=== PATIENT | female | born 1990 | race Caucasian/White ===

== ENCOUNTER 2016-05-02 16:43 | Emergency (ER) | payer SELFPAY ==
[~2016-05-02] VITALS: Wt 65.0 kg
[~2016-05-02 16:43] MED LIST: CEPH-443 PO; CIPR500T4 PO; PNV11TAB PO
[2016-05-02 19:35] LABS: URINE BLOOD (Dip) POC Trace-lysed (NEGATIVE)
[2016-05-02 19:40] LABS: BASOPHILS % 0.3 % (0.0-2.0); EOSINOPHILS # 0.1 10^3/ul (0.0-0.5); EOSINOPHILS % 0.9 % (0.0-7.0); HEMATOCRIT 35.9 % (37.0-47.0); HEMOGLOBIN 12.4 g/dl (12.0-16.0); LYMPHOCYTES # 3.4 10^3/ul (0.8-2.9); MEAN CORPUSCULAR HEMOGLOBIN 30.8 pg (29.0-33.0); MEAN CORPUSCULAR HGB CONC 34.4 g/dl (32.0-37.0); MEAN CORPUSCULAR VOLUME 89.4 fl (82.0-101.0); MONOCYTE # 0.7 10^3/ul (0.3-0.9); MONOCYTES % 5.9 % (0.0-11.0); NEUTROPHIL # 7.4 10^3/ul (1.6-7.5); NEUTROPHILS % 63.9 % (39.0-77.0); PLATELET COUNT 308 10^3/UL (140-440); RED BLOOD COUNT 4.02 10^6/ul (4.20-5.40); RED CELL DISTRIBUTION WIDTH 12.9 % (11.5-14.5); UNCORRECTED WBC 11.6 10^3/ul (4.8-10.8); WHITE BLOOD COUNT 11.6 10^3/ul (4.8-10.8)
[2016-05-02 19:43] LABS: CONDITION 1
--- NOTE | 2016-05-02 19:46 | RADRPT ---
PROCEDURE: Real Time Sonogram. 05/02/2016 06:57 p.m. CLINICAL INDICATION: Vaginal bleeding. TECHNIQUE: This procedure was performed on a high-resolution real time ultrasound Unit using a end ovaginal probe. COMPARISON: No. FINDINGS: Presentation: Cephalic. Cervical Length: Not measured.Placental Location: Frontal.Placental Previa: No. Body limb and cardiac motion: Yes.Heart rate: 137 beats per minute. The skull, ventricles and stomach are unremarkable. Other anatomy was not evaluated in d etail. sex: Indeterminate. Indeterminate. Amniotic fluid volume:4 cm Measured data: BPD:2.8 cm15 weeks area days plus or minus 1 week 1 day HC:10.8 cm15 weeks 1 day plus or minus 1 week 1 day AC:A 0.5 [id number] is plus or minus 1 week 5 days. FC:1.5 cm14 weeks 2 days plus or minus 1 week 3 days. AUA:14 weeks 6 days plus or minus 1 week 0 days. LUCI (AUA):10/25/2016. Serial scan estimated menstrual age: Not calculated. weight: 102 g Endovaginal imaging utilized: Yes. Additional findings: No. IMPRESSION: See above RPTAT:AAJJ Physician Julien Date Time Electronically viewed and signed by Brian Whitmore Physician on 05/02/2016 19:45 /
--- NOTE | 2016-05-02 20:01 | ERD ---
ER Documentation Chief Complaint Date/Time DATE: 05/02/16 TIME: 20:00 Chief Complaint SPOTTING AND ABD PAIN 14 WKS ONSET THIS AM. NO DYSURIA HPI This 25-year-old female presents with vaginal spotting and some very slight lower abdominal pain starting today. She denies any fevers, vomiting, urinary complaints. She is approximately 14 weeks by dates. She is a G2 para 1. ROS All systems reviewed and are negative except as per history of present illness. Medications Home Meds Active Scripts Ciprofloxacin Hcl* (Ciprofloxacin Hcl*) 500 Mg Tablet, 500 MG PO BID for 3 Days , TAB Prov:DONNIE ACEVEDO PA-C 05/25/15 Cephalexin* (Keflex*) 500 Mg Capsule, 500 MG PO QID for 5 Days, CAP Prov:RAYMUNDO SANDY 04/26/15 Reported Medications [id number] ( 19) 1 Each Tablet, 1 EACH PO DAILY 02/14/13 Allergies Allergies: Coded Allergies: No Known Drug Allergy (Verified Allergy, Unknown, 05/11/15) PMhx/Soc Medical and Surgical Hx: pt denies Medical Hx History of Surgery: Yes (gb ) Anesthesia Reaction: No Hx Neurological Disorder: No Hx Respiratory Disorders: No Hx Cardiac Disorders: No Hx Psychiatric Problems: No Hx Miscellaneous Medical Probl: No Hx Alcohol Use: No Hx Substance Use: No Hx Tobacco Use: No Physical Exam Vitals Vital Signs Date Time Temp Pulse Resp B/P Pulse Ox O2 Delivery O2 Flow Rate FiO2 05/02/16 16:54 98.5 68 20 120/67 100 Physical Exam Const: [] Alert, [id number] per Head: Atraumatic Eyes: Normal Conjunctiva ENT: Normal External Ears, Nose and Mouth. Neck: Full range of motion..~ No meningismus. Resp: Clear to auscultation bilaterally Cardio: Regular rate and rhythm, no murmurs Abd: Soft, non tender, non distended. Normal bowel sounds Skin: No petechiae or rashes Back: No midline or flank tenderness Ext: No cyanosis, or edema Neur: Awake and alert Psych: Normal Mood and Affect Result Diagram: 05/02/161924 Results 24 hrs Laboratory Tests Test 05/02/16 19:25 05/02/16 19:37 Basophils # 0.010^3/ul Basophils % 0.3% Eosinophils # 0.110^3/ul Eosinophils % 0.9% Hematocrit 35.9% Hemoglobin 12.4g/dl Lymphocytes # 3.410^3/ul Lymphocytes % 29.0% Mean Corpuscular Hemoglobin 30.8pg Mean Corpuscular Hemoglobin Concent 34.4g/dl Mean Corpuscular Volume 89.4fl Mean Platelet Volume 8.0fl Monocytes # 0.710^3/ul Monocytes % 5.9% Neutrophils # 7.410^3/ul Neutrophils % 63.9% Nucleated Red Blood Cells # 0.010^3/ul Nucleated Red Blood Cells % 0.0/100WBC Platelet Count 33187^3/UL Red Blood Count 4.0210^6/ul Red Cell Distribution Width 12.9% White Blood Count 11.610^3/ul Bedside Urine Blood Trace-lysed Bedside Urine Glucose (UA) Negative Bedside Urine Ketones (LAB) Negative Bedside Urine Leukocyte Esterase (L Negative Bedside Urine Nitrite (LAB) Negative Bedside Urine Protein (LAB) Negative Bedside Urine pH (LAB) 5.5 Procedures/MDM Ultrasound shows normal-appearing intrauterine 15 week . No evidence of adnexal . Urine is negative for leukocytes, nitrites and glucose. Patient is Rh+. Patient has vaginal spotting of uncertain etiology of second trimester . There is no evidence of acute complications of , ectopic , UTI, acute abdomen, appendicitis. She will be discharged home with further observation with instructions to return for worsening bleeding , vomiting, pain, new or worsening symptoms. Departure Diagnosis: Primary Impression: Vaginal bleeding before 22 weeks gestation Condition: Stable Patient Instructions: Vaginal Bleed in Additional Instructions: All examinations normal today. Follow-up with OB or return for new or worsening symptoms-worsening bleeding, fevers, vomiting, new symptoms. GRACIELA CHAVEZ MD May 02, 2016 20:01
[2016-05-02 20:06] VITALS: BP 127/67; PULSE 88; RESP 20; TEMP 98.5
== END 2016-05-02 20:06 | disposition home or self-care (01) ==
LOC: FTE 16:43
DX: O20.9 Hemorrhage in early pregnancy, unspecified (principal); Z3A.14 14 weeks gestation of pregnancy
CPT/HCPCS: 76805; 81003; 84702; 85025; 86900; 86901